=== PATIENT | male | born 1990 | race African-American/Black ===

== ENCOUNTER 2019-02-19 12:26 | Emergency (ER) | payer MEDICAID, OTHER ==
[~2019-02-19] VITALS: Ht 190.5 cm; Wt 131.8 kg
[2019-02-19] MEDS ORDERED: ELVI1TAB3 PO (13:19)
[2019-02-19] MEDS ORDERED: HYDR25TA PO (13:19)
[2019-02-19] MEDS ORDERED: ARIP2 PO (13:19)
[2019-02-19] MEDS ORDERED: PRAV10TA39 PO (13:19)
[2019-02-19] MEDS ORDERED: VORT5TAB PO (13:19)
[2019-02-19 14:10] VITALS: BP 138/68
[2019-02-19] MEDS ORDERED: KETOROLAC TROMETHAMINE 10 MG TABLET PO ONE (15:00)
[2019-02-19] MEDS ORDERED: ONDANSETRON HCL 4 MG TABLET PO ONE (15:00)
== END 2019-02-19 15:43 | disposition home or self-care (01) ==
LOC: EMS 12:30
DX: J11.1 Influenza due to unidentified influenza virus with other respiratory manifestations (principal); E78.00 Pure hypercholesterolemia, unspecified; I10 Essential (primary) hypertension; F32.9 Major depressive disorder, single episode, unspecified; F15.90 Other stimulant use, unspecified, uncomplicated; F17.210 Nicotine dependence, cigarettes, uncomplicated; Z79.899 Other long term (current) drug therapy
CPT/HCPCS: 99283; Q0162

== ENCOUNTER 2019-02-21 18:58 | Emergency (ER) | payer OTHER ==
[~2019-02-21] VITALS: Ht 190.5 cm; Wt 133.6 kg
[~2019-02-21 18:58] MED LIST: ARIP2 PO; ELVI1TAB3 PO; HYDR25TA PO; PRAV10TA39 PO; VORT5TAB PO
[2019-02-21] MEDS ORDERED: OSEL75 PO (19:16)
[2019-02-21 22:42] VITALS: BP 144/78
[2019-02-21] MEDS ORDERED: IBUPROFEN 600 MG TABLET PO ONE (23:00)
== END 2019-02-21 23:14 | disposition home or self-care (01) ==
LOC: EMS 18:59
DX: B34.9 Viral infection, unspecified (principal); R07.89 Other chest pain; F32.9 Major depressive disorder, single episode, unspecified; E78.00 Pure hypercholesterolemia, unspecified; I10 Essential (primary) hypertension; F19.90 Other psychoactive substance use, unspecified, uncomplicated
CPT/HCPCS: 93005